=== PATIENT | male | born 1945 | race Caucasian/White ===

== ENCOUNTER 2025-02-11 16:31 | Observation (INO) | payer MEDICARE, BC, SELFPAY ==
--- NOTE | 2025-02-10 07:00 | EKG_ITS ---
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 : 1945 Requested By: Zarina Dsouza Order Number: [id number] Reading MD: Zarina Dsouza Measurements Intervals [place] Rate: 127 P: SC: QRS: 75 QRSD: 100 T: -17 QT: 310 QTc: 451 Interpretive Statements ATRIAL FLUTTER/TACHYCARDIA WITH RAPID VENTRICULAR RESPONSE INCOMPLETE RIGHT BUNDLE BRANCH BLOCK [90+ ms QRS DURATION, TERMINAL R IN V1/V2, 40+ ms S IN I/aVL/V4/V5/V6] POSSIBLE INFERIOR MYOCARDIAL INFARCTION , PROBABLY OLD [30 ms Q WAVE IN II/aVF] ST DEPRESSION, CONSIDER SUBENDOCARDIAL INJURY [0.1+ mV ST DEPRESSION] No previous ECG available for comparison /store/S0/[id number].pdf
[2025-02-10 13:55] LABS: Basophils % (Auto) 0 % (0-2.5); Eosinophils % (Auto) 1 % (0-10); Hematocrit 43.9 % (41.0-53.0); Hemoglobin 14.7 g/dL (13.5-16.0); Immature Granulocytes % (Auto) 1 % (0-0); Immature Granulocytes Auto 0.04 Thou/mm3 (0.00-0.00); Lymphocytes # (Auto) 1.9 Thou/mm3 (1.0-4.8); Lymphocytes % (Auto) 23 % (10-50); Mean Corpuscular HGB Conc 33.5 g/dl (31.0-37.0); Mean Corpuscular Hemoglobin 28.9 pg (25.0-35.0); Mean Corpuscular Volume 86 fL (80-100); Monocytes # (Auto) 0.5 Thou/mm3 (0.0-0.8); Monocytes % (Auto) 6 % (0-12); Neutrophils # (Auto) 5.8 Thou/mm3 (1.8-7.7); Neutrophils % (Auto) 70 % (37-80); Nucleated Red Blood Cell % 0 /100 WBC (0); Platelet Count 230 Thou/mm3 (140-440); RDW Standard Deviation 59.6 fL (35.1-43.9); Red Blood Count 5.09 Miln/mm3 (4.50-5.90); White Blood Count 8.3 Thou/mm3 (3.8-10.6)
[2025-02-10 14:08] LABS: Anion Gap 7 (7-16); BUN/Creatinine Ratio 12 Ratio (12-20); Blood Urea Nitrogen 16 mg/dL (9-23); Calcium 9.9 mg/dL (8.3-10.6); Carbon Dioxide 26.2 mMol/L (20.0-31.0); Chloride 107 mMol/L (98-107); Creatinine (Component) 1.3 mg/dL (0.6-1.3); Glucose 132 mg/dL (74-106); Osmolality,Calculated 282 (275-295); Partial Thromboplastin Time 27.8 Seconds (22.0-36.0); Potassium 4.4 mMol/L (3.4-5.1); Prothrombin Time 11.1 Seconds (9.0-12.2); Sodium 140 mMol/L (136-145); eGFR 56 See Note
[2025-02-11] VITALS (14 sets, daily range): BP systolic 102–127; BP diastolic 62–92; PULSE 121–127; RESP 12–20; TEMP 36.3–36.7; O2SAT 96–100; BMI 19.5
[2025-02-11] MEDS: DIAZEPAM 5 MG TABLET PO (11:25)
--- NOTE | 2025-02-11 13:32 | PD.CARDCATH ---
Cardiac Cath Procedure Procedure Narrative Date of the procedure 02/11/2025 Title of the procedure 1. Left heart catheterization 2. Left coronary angiogram 3. Right coronary angiogram 4. Left ventriculogram 5. Conscious sedation 6. Radiographic interpretation supervision 7. Ultrasound guidence for Right femoral this is a access 8.angiogram of the vein graft to the right coronary artery 9.angiogram left internal mammary artery to the LAD Indication for the procedure 79-year-old gentleman with past medical history of coronary artery disease Prior history of bypass surgery patient has history of atrial flutter currently on anticoagulation He was complaining of exertional shortness of breath atypical chest pain Cardiolite scan was abnormal Cardiac catheter and cholangiogram recommended Procedure This is done in the cardiac lab under continuous electrocardiographic monitoring Intermittent blood pressure monitoring right radial arterial access obtained using modified Seldinger technique 6 Japanese radial sheath was placed under ultrasound guidence JL 5 catheter used for selective injection of the left coronary artery JR4 catheter used for selective in the right coronary artery MP 1 catheter used for selective injection of the vein graft to the RCA Pigtail catheter used for left ventriculogram Findings Hemodynamics Left ventricular systolic function is reduced, ejection fraction 35% Left ventricular end-diastolic pressure is 18 mmHg Gradient across the aortic valve is 0 mm gradient Coronary anatomy Right dominance Left main coronary artery is normal Left anterior descending artery is diffusely occluded proximally Diagonal vessel is luminal regularities Left circumflex artery is normal Obtuse marginal vessel is normal Right coronary artery is occluded 100% proximally Posterior descending artery is receiving blood flow via the graft Vein graft to the RCA- PDA appears to be widely patent NGUYEN to the LAD appears to be widely patent Conclusion Severe left ventricular dysfunction Patent graft x 2 Recommendation Continue medical management
--- NOTE | 2025-02-11 13:46 | EKG_ITS ---
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: : 1945 Requested By: Zarina Dsouza Order Number: [id number] Reading MD: Zarina Dsouza Measurements Intervals [place] Rate: 121 P: [place]: QRS: 71 QRSD: 152 T: 76 QT: 374 QTc: 532 Interpretive Statements ATRIAL FLUTTER/TACHYCARDIA WITH RAPID VENTRICULAR RESPONSE WITH ABERRANT CONDUCTION OR VENTRICULAR PREMATURE COMPLEXES INTRAVENTRICULAR CONDUCTION DELAY Compared to ECG 02/10/2025 12:51:39 Ventricular premature complex(es) now present Aberrant conduction of supraventricular beat(s) now present Intraventricular conduction delay now present Incomplete right bundle-branch block no longer present Myocardial infarct finding no longer present ST (T wave) deviation no longer present /store/S0/[id number]/[id number].pdf
--- NOTE | 2025-02-11 14:19 | PD.RESHP ---
Documentation for date of: 02/11/25 HPI History of Present Illness Chief complaint: s/p [facility], under obs History of present illness: Shahriar Barlow is 79 yr male with PMH of borderline hypertension, prostate cancer, neuropathy of left leg, white matter small vessel disease, active smoker, HFrEF 30%, atrial flutter who is status post left heart cath. Patient follows with standard machine stitcher Dr. Dsouza. Today he underwent cardiac catheterization and coronary angiogram to evaluate his bypass grafts which showed no occlusion. Bypass grafts were done 16 years ago. Angio was completed without any complications. Plan was for him to be discharged however patient does not have means of reaching home today. Therefore will admit for observation. He is to undergo electrical cardioversion for atrial flutter done outpatient in [place]. He currently denies any chest pain, palpitations, shortness of breath. Per cardiology, patient to resume aspirin and Eliquis 5 mg twice daily starting tomorrow. PMH: As noted above PSH: Prostate lobectomy, back surgery with neurostimulator, CABG FAM HX: Unknown Social history.: Travels frequently, currently living with his brother in [place]. Admits to smoking marijuana. Also current cigarette smoker--1 PPD for 60 years. Denies any illicit drug use, drinking. Allergies: Morphine causing hives. Meds: Aspirin 81 mg daily, Eliquis 5 mg twice daily Review of Systems Review of Systems Systems Reviewed: All systems reviewed, normal except as documented Exam Vital Signs Temp Pulse Resp BP Pulse Ox O2 Del Method 97.5 F 127 H 17 118/84 100 Room Air 02/11/25 11:00 02/11/25 11:17 02/11/25 11:02/11/25 11:02/11/25 11:02/11/25 11:00 Narrative Exam General: Eldery male, thin, No acute distress, cooperative HEENT: NCAT, No JVD noted. Mucosa moist. Pupils are equal and reactive to light bilaterally Cardiovascular: Normal S1 and S2. Irregular rate, tachycardic Respiratory: Lungs are clear to auscultation bilaterally. No wheezing or crackles heard. Abdomen: Soft, nontender, not distended, normal bowel sounds. Skin: Warm to touch, dry, no rashes noted, tattoos throughout body Musculoskeletal: No gross injuries. Able to move all 4 extremities. No pitting edema Neuro: Alert and oriented x3. No focal neuro deficits. Psych: Normal affect and mood Results: Labs 02/12/25 04:10 02/12/25 04:10 Quality Measures Quality Measures none Advance care planning discussed with:: patient Medications Home Medications and Allergies Home Medications ?Medication ?Instructions ?Recorded ?Confirmed ?Type apixaban 5 mg tablet (Eliquis) 5 mg PO BID 02/11/25 02/11/25 History aspirin 81 mg tablet,delayed 81 mg PO QDAY 02/11/25 02/11/25 History release (Adult Aspirin Regimen) Allergies Allergy/AdvReac Type Severity Reaction Status Date / Time bee venom protein (honey bee) Allergy Severe Anaphylaxis Unverified 02/12/25 08:21 Opioids - Morphine Analogues Allergy Severe Anaphylaxis Verified 02/11/25 14:20 bee sting Allergy Severe Anaphylaxis Uncoded 02/11/25 14:20 Visit Medications Acetaminophen (Acetaminophen 325 Mg Tablet) 650 mg PO Q6H PRN PRN Reason: Fever >100.3 or pain Stop: 03/13/25 14:11 Apixaban (Apixaban 2.5 Mg Tablet) 5 mg PO BID LIA Stop: 03/14/25 08:59 Aspirin (Aspirin Ec 81 Mg Tabec) 81 mg PO QDAY LIA Stop: 03/14/25 08:59 Sodium Chloride (Ns 0.45%) 500 mls @ 100 mls/hr IV .Q5H LIA Stop: 03/13/25 08:29 Lorazepam (Lorazepam 0.5 Mg Tablet) 0.5 mg PO Q6HR PRN PRN Reason: AGITATION OR ANXIETY Stop: 02/16/25 14:15 Ondansetron HCl (Ondansetron Inj 2 Mg/Ml Inj 2 Ml) 4 mg IV Q6H PRN; Protocol PRN Reason: NAUSEA OR VOMITING Stop: 03/13/25 14:11 Sennosides (Senna Tablet) 1 tab PO QDAY PRN; Protocol PRN Reason: constipation Stop: 03/13/25 14:11 Discontinued Medications Diazepam (Diazepam 5 Mg Tablet) 5 mg PO X1 ONE Stop: 02/11/25 11:16 Last Admin: 02/11/25 11:25 Dose: 5 mg Assessment & Plan Plan Shahriar Barlow is 79 yr male with PMH of borderline hypertension, prostate cancer, neuropathy of left leg, white matter small vessel disease, active smoker, HFrEF 30%, atrial flutter who is status post left heart cath. Patient follows with standard machine stitcher Dr. Dsouza. Today he underwent cardiac catheterization and coronary angiogram to evaluate his bypass grafts which showed no occlusion. Plan was for him to be discharged however patient does not have means of reaching home today. Therefore will admit for observation. #s/p [facility] #Hx CABG #Hx HFrEF 32% #Hx atrial flutter -Per cardiology, resume aspirin and Eliquis 5BID starting tomorrow -Ativan 0.5 mg PO q6hr No caffeine ? Patient will follow-up with standard machine stitcher outpatient for cardiac ablation Health maintenance: Dispo: tele for observation Diet: carb consistent DVT prophylaxis: not indicated, Eliquis 5 BID tomorrow CODE STATUS: Full code The patient's management plan was discussed with my attending physician Dr. Arroyo. Sophy Reyes, PGY-1 Attending Provider Attestation/Addendum I reviewed labs, imaging, EKG, home medications and prior available records. Face to face evaluation was performed by me. I have personally examined the patient and discussed assessment and plan with the IM team. I reviewed the resident note and agree with the plan with exceptions as below. Chest pain at rest CAD status post CABG Atrial fibrillation with controlled ventricular rhythm Chronic HFrEF EF 30 to 35% Tobacco use COPD without exacerbation Status post cardiac catheterization that showed patent grafts Discussed with cardiology: Observe for 24 hours and discharge on 02/12 if stable Continue aspirin and Eliquis Avoid tobacco use Cardiac diet Outpatient follow-up with cardiology
--- NOTE | 2025-02-11 14:56 | PC.NURSE ---
1334 patient post [facility] by Dr. Dsouza, to be admitted for observation by hospitalist. Dressing to right groin dry with no bleeding or hematoma. Report received from Jamir RICHARDS, patient to recover in lab aid until 1600, then go to tele bed if available. Patient to continue aspirin and eliquis tomorrow. 12 lead EKG ordered by 1347 Dr. Reyes hospitalist at bedside assessing patient, patient ate sandwitch, jello and apple juice with no nausea or vomiting 1404 12 lead EKG done, read by Dr. Reyes. 1445 Dr Cho hospitalist at bedside assessing patient and anwering questions.
--- NOTE | 2025-02-11 16:06 | PC.NURSE ---
1605 patient is awake, alert, breathing unlabored, dressing to right groin dry with no bleeding or hematoma. report given to Kathie RICHARDS, patient transferred to room 268 with all belongins including cane.
[2025-02-11] MEDS: LORazepam 0.5 MG TABLET PO ×2 (17:05→22:47)
[2025-02-11] MEDS: SODIUM CHLORIDE 0.45 % 1,000 ML 100 ML IV (17:26)
[2025-02-12] VITALS: BP 104/83; PULSE 121; PULSE 122; RESP 20; TEMP 36.3; O2SAT 94
[2025-02-12 04:00] VITALS: BP 116/86; PULSE 122; PULSE 123; RESP 28; TEMP 36.4; O2SAT 95
[2025-02-12 05:11] LABS: Basophils % (Auto) 0 % (0-2.5); Eosinophils # (Auto) 0.1 Thou/mm3 (0.0-0.5); Eosinophils % (Auto) 1 % (0-10); Hematocrit 38.4 % (41.0-53.0); Hemoglobin 12.9 g/dL (13.5-16.0); Immature Granulocytes % (Auto) 0 % (0-0); Immature Granulocytes Auto 0.03 Thou/mm3 (0.00-0.00); Lymphocytes # (Auto) 1.7 Thou/mm3 (1.0-4.8); Lymphocytes % (Auto) 25 % (10-50); Mean Corpuscular HGB Conc 33.6 g/dl (31.0-37.0); Mean Corpuscular Hemoglobin 29.5 pg (25.0-35.0); Mean Corpuscular Volume 88 fL (80-100); Monocytes # (Auto) 0.7 Thou/mm3 (0.0-0.8); Monocytes % (Auto) 11 % (0-12); Neutrophils # (Auto) 4.2 Thou/mm3 (1.8-7.7); Neutrophils % (Auto) 62 % (37-80); Nucleated Red Blood Cell % 0 /100 WBC (0); Platelet Count 171 Thou/mm3 (140-440); RDW Standard Deviation 59.7 fL (35.1-43.9); Red Blood Count 4.37 Miln/mm3 (4.50-5.90); White Blood Count 6.7 Thou/mm3 (3.8-10.6)
[2025-02-12 05:41] LABS: Alanine Aminotransferase 30 U/L (10-49); Albumin, Serum 3.6 gm/dL (3.4-4.8); Albumin/Globulin Ratio 1.7 (1.2-2.2); Alkaline Phosphatase 51 U/L (46-116); Anion Gap 8 (7-16); Aspartate Amino Transferase 27 U/L (0-34); BUN/Creatinine Ratio 15 Ratio (12-20); Bilirubin,Total 0.8 mg/dL (0.3-1.2); Blood Urea Nitrogen 15 mg/dL (9-23); Calcium 8.9 mg/dL (8.3-10.6); Calcium (Corrected) 9.2 mg/dL (8.5-10.1); Carbon Dioxide 21.8 mMol/L (20.0-31.0); Chloride 112 mMol/L (98-107); Estimated Creatinine Clearance 56.2 mL/min (>60); Globulin 2.1 gm/dL (2.3-3.5); Glucose 106 mg/dL (74-106); Osmolality,Calculated 283 (275-295); Potassium 4.2 mMol/L (3.4-5.1); Sodium 142 mMol/L (136-145); Total Protein 5.7 gm/dL (5.7-8.2); eGFR > 60 See Note
[2025-02-12 08:00] VITALS: BP 115/80; PULSE 112; RESP 24; TEMP 36.7; O2SAT 96
[2025-02-12] MEDS: ASPIRIN EC 81 MG TABEC PO (08:31)
[2025-02-12] MEDS: APIXABAN 2.5 MG TABLET 5 MG PO (08:32)
--- NOTE | 2025-02-12 08:44 | PC.SS ---
Update: Plan is to discharge patient today.
--- NOTE | 2025-02-12 11:22 | ESDS_ITS ---
Planned Discharge Date 02/12/25 DS: Providers Provider Date of admission: 02/11/25 16:31 Primary care physician: Terra Montes De Oca NP Admitting Provider: Zarina Dsouza MD Attending Provider on Admission: Jose Angel Arroyo MD Attending Provider on DC: Jose Angel Arroyo MD Discharging Provider: Jose Angel Arroyo MD DS: Diagnosis Problem List Completed Was Problem List Reviewed/Reconciled?: Yes Hospital Course Hospital Course Hospital course: Shahriar Barlow is 79 yr male with PMH of borderline hypertension, prostate cancer, neuropathy of left leg, white matter small vessel disease, active smoker, HFrEF 30%, atrial flutter who is status post left heart cath completed on 02/11/25. Patient follows with ventilating engineer Dr. Dsouza. He underwent cardiac catheterization and coronary angiogram to evaluate his bypass grafts which showed no occlusion. Bypass grafts were done 16 years ago. Angio was completed without any complications. Patient did not have means for transportation after procedure. Therefore was admitted for observation. He is to undergo electrical cardioversion for atrial flutter done outpatient in [place]. He currently denies any chest pain, palpitations, shortness of breath. Per cardiology, patient to continue aspirin and Eliquis 5 mg twice daily. Patient is now in stable condition and ready for discharge. Recommendations were given as below. Discharge Recommendations: You have appointment scheduled with Dr. Dsouza, (Lead Manufacturing Engineering Tech), in his office this Friday February 14, 2025 at 11 AM. Please call to schedule a follow up appointment with your primary care doctor 1- 2 weeks after discharge so he/she can make further recommendations about your overall health condition. Continue taking Eliquis 5 mg twice daily and aspirin 81 mg daily. Hospital Diagnoses: #CAD s/p C #Hx CABG #Hx HFrEF 32% #Hx atrial flutter #Tobacco use The patient's management plan was discussed with my attending physician Dr. Arroyo. Sophy Reyes MD, PGY-1 Time spent discussing smoking cessation with patient: more than 10 minutes Time Spent with Patient Time attestation: Total time spent providing and/or coordinating discharge services: Time spent: Greater than 30 minutes Exam Vital Signs Temp Pulse Resp BP Pulse Ox O2 Del Method 98.0 F 112 H 24 H 115/80 96 Room Air 02/12/25 08:00 02/12/25 08:00 02/12/25 08:00 02/12/25 08:00 02/12/25 08:00 02/12/25 08:00 Narrative Exam General: Eldery male, thin, No acute distress, cooperative HEENT: NCAT, No JVD noted. Mucosa moist. Pupils are equal and reactive to light bilaterally Cardiovascular: Normal S1 and S2. Irregular rate, tachycardic Respiratory: Lungs are clear to auscultation bilaterally. No wheezing or crackles heard. Abdomen: Soft, nontender, not distended, normal bowel sounds. Skin: Warm to touch, dry, no rashes noted, tattoos throughout body Musculoskeletal: No gross injuries. Able to move all 4 extremities. No pitting edema Neuro: Alert and oriented x3. No focal neuro deficits. Psych: Normal affect and mood Discharge Plan Plan Patient Disposition: HOME (Self Care) Patient condition on transfer: Stable Prescriptions/Referrals Prescriptions/Med Rec: Continued Eliquis 5 mg tablet 5 mg PO BID aspirin [Adult Aspirin Regimen] 81 mg tablet,delayed release (DR/EC) 81 mg PO QDAY Referrals: Terra Montes De Oca NP [Primary Care Provider] - Zarina Dsouza MD [Physician] - Patient/Caregiver Discharge Instructions Other Discharge Activity Instructions:: You have appointment scheduled with Dr. Dsouza, (Lead Manufacturing Engineering Tech), in his office this Friday February 14, 2025 at 11 AM. . Address: [address] [place] [address]. [phone]. Please call to schedule a follow up appointment with your primary care doctor 1- 2 weeks after discharge so he/she can make further recommendations about your overall health condition. Continue taking Eliquis 5 mg twice daily and aspirin 81 mg daily. Other Discharge Diet Instructions: Eat a well-balanced diet with plenty of fresh fruits, vegetables and whole grains if not contraindicated by your primary care provider. Choose water to hydrate yourself over any other type of drinks. Talk to your primary doctor for further advice for a diet that fits your nutritional body requirements and for an adequate exercise program to keep and improve your overall health condition. ALWAYS FOLLOW/CONSIDER YOUR PRIMARY CARE DOCTOR'S MEDICAL ADVICE BEFORE MAKING ANY CHANGES TO YOUR DIET OR LEVELS OF ACTIVITY. Should you have any other questions or concerns on regards today?s procedure; feel free to contact us to [employer] Department . Education Materials: Having Cardiac Catheterization, Cardiac Catheterization Dc Print Language: Armenian Activity Restrictions/Additional Instructions: Please call to schedule a follow up appointment with Dr. Dsouza, (Lead Manufacturing Engineering Tech), in his office within one week upon discharge. . Address: [address] [place] [address]. [phone]. Please call to schedule a follow up appointment with your primary care doctor 1- 2 weeks after discharge so he/she can make further recommendations about your overall health condition. DO NOT drive or operate any motor vehicle, heavy equipment or machinery in the next 24 hours. DO NOT perform any activity that requires you to be fully alert in the next 24 hour. DO NOT sign any documentation in the next 24 hours that requires a full understanding of what you are signing for. DO NOT perform any strenuous physical activity in the next 5 days. Avoid activities that require bending at your waist in the next 5 days. Avoid lifting objects 5 pounds or heavier in the next 5 days. DO NOT strain your bowel. If you experience constipation, drink plenty of fluids, especially water, if not contraindicated by your doctor. In addition, add foods rich in fiber. Should you experience constipation, talk to your doctor about other options that might help you alleviate it. Keep your blood pressure under control. If you take blood pressure medication, continue to take it if not contraindicated by your doctor. Doing so, helps to prevent post-complications such as bleeding. Take your new/previous medication as directed by the doctor. If there is no changes, continue to take medication at your usual time. After 5 days, start increasing the level of physical activity gradually for the subsequent 5 days. You can resume your shower routine tomorrow but keep your dressing clean and dry. Remove the dressing placed on the surgical incision 48 hours after discharge. After removing your dressing, you can gently clean your surgical site with soap and water and pad dry it. DO NOT rub site to prevent complication such as bleeding. DO NOT apply any lotions, creams, or powders on the surgical site until your skin completely heels (5 days or more). Should you experience any type of complications on your extremity such as pain, change in color, temperature, a bruise that increases in size and color at the surgical site (Groin Area), a lump (Hard or soft) that develops and increases in size at the surgical site (Groin Area), numbness, or changes in sensation, Chest pain, or shortness of breath; PLEASE GO TO THE NEAREST EMERGENCY ROOM IMMEDIATELY. Look out for signs of infection such as tenderness, redness, or drainage to your surgical site (Groin Area); if any, report them to your primary care doctor immediately. Should you have any other questions or concerns on regards today?s procedure; feel free to contact us to [employer] Department . Stand Alone Forms: [employer] Award Info., Patient Portal Info Letter, Work/Release Restrictions Discharge Order Discharge Orders: Discharge (Routine); Ordered 02/12/25 Ordered By: Sophy Reyes Quality Discharge Quality Measures VTE therapy Attestestation Attestation I reviewed labs, imaging, EKG, home medications and prior available records. Face to face evaluation was performed by me. I have personally examined the patient and discussed assessment and plan with the IM team. I reviewed the resident note and agree with the plan with exceptions as below. Chest pain at rest CAD status post CABG Atrial fibrillation with controlled ventricular rhythm Chronic HFrEF EF 30 to 35% Tobacco use COPD without exacerbation Status post cardiac catheterization that showed patent grafts Discussed with cardiology: Okay to discharge Continue aspirin and Eliquis Avoid tobacco use Cardiac diet Rate is slightly uncontrolled. Discussed with cardiology: He will need A-fib ablation which will be scheduled later Outpatient follow-up with cardiology on Monday Time spent is 40 minutes. More than 50% of the time was spent on patient education and coordination of care.
== END 2025-02-12 09:45 | disposition home or self-care (01) ==
LOC: SCCL 16:31 → S2NX 02-12 06:33
PROVIDERS: Admitting Provider Internal Medicine; PCP Nurse Practitioner Family; Referring Provider Internal Medicine; Visit Provider Student in an Organized Health Care Education/Training Program
PROC: (CPT 93458; principal; 2025-02-11 13:00)
DX: I25.118 Atherosclerotic heart disease of native coronary artery with other forms of angina pectoris (principal); Z95.1 Presence of aortocoronary bypass graft; I50.22 Chronic systolic (congestive) heart failure; I48.92 Unspecified atrial flutter; I67.82 Cerebral ischemia; I11.9 Hypertensive heart disease without heart failure; F12.90 Cannabis use, unspecified, uncomplicated; I48.91 Unspecified atrial fibrillation; Z01.810 Encounter for preprocedural cardiovascular examination; Z72.0 Tobacco use
CPT/HCPCS: 93458; 36415; 80048; 80053; 83735; 85025; 85610; 85730; 93005; 96360; 96361; 99152; 99153; A4216; A4649; C1760; C1894; G0378; J0171; J0282; J0461; J0583; J1643; J2250; J2310; J2371; J3010; J3490; J7030; Q9967; A9270; J2305